=== PATIENT | female | born 1980 | race Caucasian/White ===

== ENCOUNTER 2021-09-11 12:07 | Inpatient (IN) | payer OTHER ==
[2021-09-11] MEDS ORDERED: MAGNESIUM HYDROX 2400MG/30ML ORAL SUSPENSION 30 ML CUP PO PRN (12:47)
[2021-09-11] MEDS ORDERED: LOPERAMIDE HCL 2 MG CAPSULE PO PRN (12:47)
[2021-09-11] MEDS ORDERED: MAG HYDROX/AL HYDROX/SIMETH 30 ML UNIT-DOSE CUP PO PRN (12:47)
[2021-09-11] MEDS ORDERED: P-EPHED 60MG/TRIPROLIDI 2.5MG TABLET PO PRN (12:47)
[2021-09-11] MEDS ORDERED: IBUPROFEN 400 MG TABLET (FP) PO PRN (12:47)
[2021-09-11] MEDS ORDERED: ACETAMINOPHEN 325 MG TABLET (FP) PO PRN (12:47)
[2021-09-11] MEDS ORDERED: MAGNESIUM CITRATE 300 ML BOTTLE PO PRN (12:47)
[2021-09-11] MEDS ORDERED: NICOTINE 10 MG CARTRIDGE (INHALER) IH PRN (12:47)
[2021-09-11] MEDS ORDERED: guaiFENesin 200 MG/10 ML 10 ML UNIT-DOSE CUPS PO PRN (12:47)
[2021-09-11 15:01] VITALS: BMI 24.4
[2021-09-11 15:47] LABS: HEMATOCRIT 34.5 % (32.4-45.2); HEMOGLOBIN 11.4 GM/dL (10.7-15.3); MCH 29.6 pg (25.7-33.7); MEAN CELL VOLUME 89.7 fl (80-96); MEAN PLT VOLUME 8.8 fl (7.5-11.1); PLATELET COUNT 284 10^3/uL (134-434); RBC 3.85 M/mm3 (3.60-5.2); RDW 15.2 % (11.6-15.6); WHITE BLOOD COUNT 5.9 K/mm3 (4.0-10.0)
[2021-09-11 15:51] LABS: CALCIUM 9.2 mg/dL (8.5-10.1)
[2021-09-11 15:52] LABS: ALBUMIN 3.8 g/dl (3.4-5.0); BLOOD UREA NITROGEN 11.8 mg/dL (7-18)
[2021-09-11 15:55] LABS: CREATININE 0.8 mg/dL (0.55-1.3)
[2021-09-11 15:57] LABS: BILIRUBIN,TOTAL 0.3 mg/dL (0.2-1); TOT PROT 6.7 g/dl (6.4-8.2)
[2021-09-11 16:15] LABS: SYPHILIS W/ RPR CONF NON-REACTIVE (NONREACTIVE)
[2021-09-11] MEDS: PRENATAL VITAMINS W/ FOLIC ACID TABLET (FP) PO SCH (20:53)
[2021-09-11] MEDS: hydrOXYzine PAMOATE 25 MG CAPSULE (FP) PO SCH ×2 (20:54→22:24)
[2021-09-11] MEDS: THIAMINE HCL 100 MG TABLET (FP) PO SCH (21:00)
[2021-09-11] MEDS: MELATONIN 5 MG TABLETS PO SCH (22:23)
[2021-09-12] MEDS: hydrOXYzine PAMOATE 25 MG CAPSULE (FP) PO SCH ×5 (08:16→22:06)
[2021-09-12] MEDS: ARIPiprazole 10 MG TABLET PO SCH (10:55)
[2021-09-12] MEDS: PRENATAL VITAMINS W/ FOLIC ACID TABLET (FP) PO SCH (10:55)
[2021-09-12] MEDS: THIAMINE HCL 100 MG TABLET (FP) PO SCH (22:04)
[2021-09-12] MEDS: MELATONIN 5 MG TABLETS PO SCH (22:05)
[2021-09-12] MEDS: traZODone HCL 50 MG TABLET (FP) PO SCH (22:05)
[2021-09-13] MEDS: hydrOXYzine PAMOATE 25 MG CAPSULE (FP) PO SCH ×2 (06:30→10:40)
[2021-09-13] MEDS: PRENATAL VITAMINS W/ FOLIC ACID TABLET (FP) PO SCH (10:39)
[2021-09-13] MEDS: ARIPiprazole 10 MG TABLET PO SCH (10:39)
[2021-09-13] MEDS: ESCITALOPRAM OXALATE 10 MG TABLET PO SCH (10:41)
[2021-09-13] MEDS: hydrOXYzine PAMOATE 25 MG CAPSULE (FP) PO PRN (22:10)
[2021-09-13] MEDS: THIAMINE HCL 100 MG TABLET (FP) PO SCH (22:10)
[2021-09-13] MEDS: traZODone HCL 50 MG TABLET (FP) PO SCH (22:11)
[2021-09-13] MEDS: MELATONIN 5 MG TABLETS PO SCH (22:11)
[2021-09-14] MEDS: PRENATAL VITAMINS W/ FOLIC ACID TABLET (FP) PO SCH (10:45)
[2021-09-14] MEDS: ARIPiprazole 10 MG TABLET PO SCH (10:46)
[2021-09-14] MEDS: ESCITALOPRAM OXALATE 10 MG TABLET PO SCH (10:46)
[2021-09-14] MEDS: hydrOXYzine PAMOATE 25 MG CAPSULE (FP) PO PRN (10:48)
[2021-09-14] MEDS: traZODone HCL 50 MG TABLET (FP) PO SCH (21:08)
[2021-09-14] MEDS: THIAMINE HCL 100 MG TABLET (FP) PO SCH (21:09)
[2021-09-14] MEDS: MELATONIN 5 MG TABLETS PO SCH (21:09)
[2021-09-15 07:41] VITALS: BP 108/60; PULSE 72; TEMP 97.3
[2021-09-15] MEDS: ESCITALOPRAM OXALATE 10 MG TABLET PO SCH (10:55)
[2021-09-15] MEDS: PRENATAL VITAMINS W/ FOLIC ACID TABLET (FP) PO SCH (10:55)
[2021-09-15] MEDS: ARIPiprazole 10 MG TABLET PO SCH (10:55)
== END 2021-09-15 16:05 | disposition home or self-care (01) | DRG 772 ==
LOC: YASAS 12:07 → Y5N 19:10
PROVIDERS: ADMIT Allergy & Immunology; ATTEND Allergy & Immunology
PROC: HZ42ZZZ Group Counseling for Substance Abuse Treatment, Cognitive-Behavioral (ICD-10-PCS; principal; 2021-09-11)
DX: F14.20 Cocaine dependence, uncomplicated (principal); F10.20 Alcohol dependence, uncomplicated; F17.210 Nicotine dependence, cigarettes, uncomplicated; F19.282 Other psychoactive substance dependence with psychoactive substance-induced sleep disorder; F25.9 Schizoaffective disorder, unspecified; F31.9 Bipolar disorder, unspecified; F43.10 Post-traumatic stress disorder, unspecified; G47.00 Insomnia, unspecified; M54.50 Low back pain, unspecified; G89.29 Other chronic pain; Z62.810 Personal history of physical and sexual abuse in childhood; Z59.01 Sheltered homelessness; Z56.0 Unemployment, unspecified
CPT/HCPCS: 36415; 80053; 85027; 86780; 86803; 87811; 93005; 93010; C9803-CS; U0003; U0005